=== PATIENT | male | born 1960 | race Caucasian/White ===

== ENCOUNTER 2018-05-01 07:32 | Emergency (ER) | payer OTHER ==
[2018-05-01] MEDS ORDERED: CLINDAMYCIN 600MG/50ML PREMIX 600 MG/50 ML BAG IVPB ONE (07:53)
[2018-05-01] MEDS ORDERED: HYDROMORPHONE HCL 2 MG/ML VIAL IVP ONE (08:12)
[2018-05-01] MEDS ORDERED: ONDANSETRON HCL IV 4 MG/2 ML VIAL IVP ONE (08:12)
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
[2018-05-01] MEDS ORDERED: Diph,Pert(Acell),Tet Vac 0.5 ML SYR IM ONE (09:14)
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
== END 2018-05-01 09:50 | disposition home or self-care (01) ==
LOC: ER 07:32
DX: S01.81XA Laceration without foreign body of other part of head, initial encounter (principal); L03.211 Cellulitis of face; I10 Essential (primary) hypertension; W20.8XXA Other cause of strike by thrown, projected or falling object, initial encounter
CPT/HCPCS: 99284 ×2; 96372; 96365; 96375; 99283; 70486; J2405; J1170; 90715

== ENCOUNTER 2018-05-01 19:47 | Emergency (ER) | payer OTHER ==
[2018-05-01] MEDS ORDERED: CLINDAMYCIN 600MG/50ML PREMIX 600 MG/50 ML BAG IVPB ONE (20:10)
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
== END 2018-05-01 20:45 | disposition home or self-care (01) ==
LOC: ER 19:47
DX: S01.81XA Laceration without foreign body of other part of head, initial encounter (principal); L03.211 Cellulitis of face; W20.8XXA Other cause of strike by thrown, projected or falling object, initial encounter
CPT/HCPCS: 96365; 99283; 99284